=== PATIENT | male | born 1995 | race African-American/Black ===

== ENCOUNTER 2017-10-27 00:26 | Emergency (ER) | payer SELFPAY ==
[2017-10-27 01:09] LABS: APPEARANCE CLEAR (CLEAR); BILIRUBIN NEGATIVE (NEGATIVE); COLOR YELLOW (YELLOW); GLUCOSE NEGATIVE (NEGATIVE); KETONE NEGATIVE (NEGATIVE); NITRITE NEGATIVE (NEGATIVE); PROTEIN NEGATIVE (NEGATIVE); UROBILINOGEN NORMAL (NORMAL)
[2017-10-27 01:10] LABS: BACTERIA FEW /hpf (NONE SEEN); EPITHELIAL CELLS 0-5 /hpf (0-5); MUCUS <1+ /lpf (NONE SEEN); RED CELLS - URINE 0-5 /hpf (0-5)
[2017-10-29 22:12] LABS: CHLAMYDIA TRACHOMATIS, NAA Positive (Negative)
== END 2017-10-27 01:29 | disposition home or self-care (01) ==
LOC: D.ER 00:26
PROVIDERS: Family Medicine
DX: Z20.2 Contact with and (suspected) exposure to infections with a predominantly sexual mode of transmission (principal)